=== PATIENT | female | born 1980 | race Caucasian/White ===

== ENCOUNTER 2024-06-04 07:52 | Day surgery (SDC) | payer BC ==
[2024-06-04] MEDS ORDERED: Propofol 200 MG/20 ML SDV ONE ×2 (08:11→09:11)
[2024-06-04] MEDS: Lactated Ringers 1,000 ML IV SCH (08:25)
[2024-06-04] MEDS ORDERED: Sodium Chloride 0.9% 10 ML Syringe FLUSH PRN (09:53)
[2024-06-04] MEDS ORDERED: Sodium Chloride 0.9% 10 ML Syringe FLUSH SCH (21:00)
== END 2024-06-04 10:09 | disposition home or self-care (01) ==
LOC: JD.SDS 07:52
PROVIDERS: ATTEND Surgery
DX: Z12.11 Encounter for screening for malignant neoplasm of colon (principal); J45.909 Unspecified asthma, uncomplicated; I11.0 Hypertensive heart disease with heart failure; I50.9 Heart failure, unspecified; E11.9 Type 2 diabetes mellitus without complications; Z79.899 Other long term (current) drug therapy; Z80.0 Family history of malignant neoplasm of digestive organs
CPT/HCPCS: 45378; J2704; J7120